=== PATIENT | female | born 1975 | race Caucasian/White ===

== ENCOUNTER 2022-04-03 13:40 | Emergency (ER) | payer OTHER ==
[2022-04-03 13:53] VITALS: BP 145/69; PULSE 99; RESP 20; TEMP 99
[2022-04-03] MEDS ORDERED: KETOROLAC 15 MG/ML 1 ML VIAL IM STA (14:24)
[2022-04-03] MEDS ORDERED: Acetaminophen-Codeine 300-30mg TAB PO STA (15:25)
--- NOTE | 2022-04-03 15:29 | ED ---
General Adult HPI - General Chief complaint: Abdominal Pain Stated complaint: Abd pain/Blood in urine Time Seen by Provider: 04/03/22 14:07 Source: patient, RN notes reviewed Mode of arrival: ambulatory Limitations: no limitations - History of Present Illness Initial comments: 46-year-old female presents to the emergency room for a chief complaint of lower abdominal pain and blood in urine. Patient reports this is an ongoing for 6 weeks now. Patient states the blood is minimal but she can see it when she wipes. Patient states she has been seen at [facility] emergency department 3 times. She had lab work and a CAT scan done. She was treated for possible urinary tract infection with antibiotic which didn't help. She then saw her primary care provider twice that changed the antibiotic but she is unsure which antibiotic it was. This did help with the pain somewhat. Patient states he doctor did a pelvic exam and she was tested for STDs which were negative. Patient states she is supposed to see a urologist but her insurance is still pending. She presented here today in hopes that we would be able to perform the testing a urologist would perform. Patient denies fevers. Patient has no other complaints at this time including shortness of breath, chest pain, nausea or vomiting, headache, or visual changes. - Related Data Previous Rx's Medication Instructions Recorded Nitrofurantoin Monohyd/M-Cryst 100 mg PO Q12HR #14 cap 04/03/22 [Macrobid] Allergies Allergy/AdvReac Type Severity Reaction Status Date / Time ciprofloxacin [From Cipro] Allergy Nausea & Verified 04/03/22 13:54 Vomiting Sulfa (Sulfonamide Allergy Rash/Hives Verified 04/03/22 13:54 Antibiotics) Review of Systems ROS Statement: Those systems with pertinent positive or pertinent negative responses have been documented in the HPI. ROS Other: All systems not noted in ROS Statement are negative. Past Medical History Past Medical History: No Reported History History of Any Multi-Drug Resistant Organisms: None Reported Past Surgical History: Appendectomy, Section, Cholecystectomy, Hysterectomy, Tubal Ligation Past Psychological History: Depression Smoking Status: Never smoker Past Alcohol Use History: None Reported Past Drug Use History: None Reported General Exam Limitations: no limitations General appearance: alert, in no apparent distress Head exam: Present: atraumatic Eye exam: Present: normal appearance, PERRL, EOMI. Absent: scleral icterus, conjunctival injection ENT exam: Present: normal exam, mucous membranes moist Neck exam: Present: normal inspection, full ROM. Absent: tenderness Respiratory exam: Present: normal lung sounds bilaterally. Absent: respiratory distress, wheezes Cardiovascular Exam: Present: regular rate, normal rhythm, normal heart sounds GI/Abdominal exam: Present: soft, tenderness (minimal suprapubic tendernesss without guarding or rebound), normal bowel sounds. Absent: distended, guarding, rebound Course Vital Signs 04/03/22 13:49 Temperature 99 F Pulse Rate 99 Respiratory 20 Rate Blood Pressure 145/69 O2 Sat by Pulse 97 Oximetry Medical Decision Making - Medical Decision Making Vitals are stable. Minimal suprapubic tenderness. exam is otherwise unremarkable. Patient is well-appearing. Patient has had outpatient workup 3. She had a negative ultrasound of her kidney and bladder, and negative CAT scan, and normal blood work within the past 6 weeks. We did attempt to get reports her [facility] however they are saying that their medical records office is closed today and they cannot give any. Patient was also treated for a urinary tract infection. She had a gynecologic exam as well, no STDs. At this plan I recommended repeat blood work which patient refused. She did not want an IV or blood draw. She did agree to urinalysis which did continue to show hematuria. There are also 16 white blood cells and small leukocyte esterase. We will try to treat with Macrobid pending culture. Ultimately patient needs to follow up with urology. I did contact registration who works with [employer] and will help expidite insurance. She was given outpatient follow up with urology. I did discuss that if she develops any worsening symptoms such as fevers or worsening abdominal pain she should return to the emergency room. I discussed this case with attending Dr. Villegas who agrees with this assessment and treatment plan. - Lab Data Lab Results 04/03/22 04/03/22 Range/Units 14:56 14:56 Urine Color Light Red Urine Appearance Cloudy H (Clear) Urine pH 5.5 (5.0-8.0) Ur Specific Cass 1.018 (1.001-1.035) Urine Protein 1+ H (Negative) Urine Glucose (UA) Negative (Negative) Urine Ketones Negative (Negative) Urine Blood Large H (Negative) Urine Nitrite Negative (Negative) Urine Bilirubin Negative (Negative) Urine Urobilinogen <2.0 (<2.0) mg/dL Ur Leukocyte Esterase Small H (Negative) Urine RBC >182 H (0-5) /hpf Urine WBC 16 H (0-5) /hpf Ur Squamous Epith Cells 1 (0-4) /hpf Urine Bacteria Rare H (None) /hpf Urine Mucus Few H (None) /hpf Urine HCG, Qual Not Detected (Not Detectd) Disposition Clinical Impression: Hematuria, Abdominal pain Disposition: HOME SELF-CARE Condition: Good Instructions (If sedation given, give patient instructions): Hematuria (ED) Additional Instructions: Take antibiotic as directed. Follow up with urology. Return to the emergency room for any worsening symptoms such as fevers or worsening pain. Prescriptions: Nitrofurantoin Monohyd/M-Cryst [Macrobid] 100 mg PO Q12HR #14 cap Is patient prescribed a controlled substance at d/c from ED?: No Referrals: VIVIEN ALVARENGA DO [Primary Care Provider] - 1-2 days Time of Disposition: 16:12
[2022-04-03 15:32] LABS: Appearance,Urine Cloudy (Clear); Bacteria,Urine Rare /hpf; Bilirubin,Urine Negative (Negative); Blood,Urine Large (Negative); Color,Urine Light Red; Glucose,Urine (UA) Negative (Negative); Ketones,Urine Negative (Negative); Leukocyte Esterase,Urine Small (Negative); Mucus,Urine Few /hpf; Nitrite,Urine Negative (Negative); PH, Urine 5.5 (5.0-8.0); Protein,Urine 1+ (Negative); RBC,Urine >182 /hpf (0-5); Specific Gravity,Urine 1.018 (1.001-1.035); Squamous Epithelial Cell,Urine 1 /hpf (0-4); Urobilinogen,Urine <2.0 mg/dL (<2.0); WBC,Urine 16 /hpf (0-5)
[2022-04-03] MEDS ORDERED: ACET/COD 300 MG/30 MG STARTER PACK 6 TAB BTL PO STA (16:13)
== END 2022-04-03 16:35 | disposition home or self-care (01) ==
LOC: EC 13:40
DX: R10.30 Lower abdominal pain, unspecified (principal); R31.9 Hematuria, unspecified; Z90.49 Acquired absence of other specified parts of digestive tract; Z88.1 Allergy status to other antibiotic agents; Z88.2 Allergy status to sulfonamides
CPT/HCPCS: 81001; 81025; 87086; 87491; 87591; 99284

== ENCOUNTER → 2022-08-30 | Day surgery (SDC) | payer OTHER ==
[~2022-08-30] MED LIST: LACTATED RINGERS 1,000 ML IV ONE; LACTATED RINGERS 1,000 ML IV SCH; LIDOCAINE 1% (10MG/ML) FOR IV START INTRADERMA PRN; LIDOCAINE 2% INJ 20 MG/ML (2 ML VIAL) ONE; PROPOFOL 10 MG/ML 20 ML VIAL IV ONE
--- NOTE | 2022-08-30 07:00 | P.GSHP ---
History of Present Illness H&P Date: 08/30/22 CHIEF COMPLAINT: GERD and colon screen HISTORY OF PRESENT ILLNESS: The patient is a 47-year-old female who presents with gastroesophageal reflux disease and need for colon screen. Upper and lower endoscopy were offered for further evaluation and management. PAST MEDICAL HISTORY: Please see list. PAST SURGICAL HISTORY: Please see list. MEDICATIONS: Please see list. ALLERGIES: Please see list. SOCIAL HISTORY: No illicit drug use FAMILY HISTORY: No reports of Crohn disease or ulcerative colitis. REVIEW OF ORGAN SYSTEMS: CONSTITUTIONAL: No reports of fevers or chills. GI: Denies any blood in stools or constipation. PHYSICAL EXAM: VITAL SIGNS: Stable GENERAL: Well-developed pleasant in no acute distress. HEENT: No scleral icterus. Extraocular movements grossly intact. Moist buccal mucosa. NECK: Supple without lymphadenopathy. CHEST: Unlabored respirations. Equal bilateral excursions. CARDIOVASCULAR: Regular rate and rhythm. Distal 2+ pulses. ABDOMEN: Soft, nondistended. MUSCULOSKELETAL: No clubbing, cyanosis, or edema. ASSESSMENT: 1. Gastroesophageal reflux disease 2. Colon screen. PLAN: 1. Recommend proceeding with an upper and lower endoscopy Past Medical History Past Medical History: No Reported History Additional Past Medical History / Comment(s): CURRENT: ABD PAIN History of Any Multi-Drug Resistant Organisms: None Reported Past Surgical History: Appendectomy, Section, Cholecystectomy, Hysterectomy, Tubal Ligation Past Anesthesia/Blood Transfusion Reactions: No Reported Reaction Past Psychological History: Depression Additional Psychological History / Comment(s): NO MEDS Smoking Status: Never smoker Past Alcohol Use History: None Reported Past Drug Use History: None Reported Medications and Allergies Home Medications Medication Instructions Recorded Confirmed Type Cyanocobalamin (Vitamin B-12) 1 tab PO DAILY 08/27/22 08/27/22 History [Vitamin B-12] Ibuprofen [Motrin Ib] 200 - 400 mg PO Q6H PRN 08/27/22 08/27/22 History Allergies Allergy/AdvReac Type Severity Reaction Status Date / Time ciprofloxacin [From Cipro] Allergy Nausea & Verified 08/27/22 08:20 Vomiting Sulfa (Sulfonamide Allergy Rash/Hives Verified 08/27/22 08:20 Antibiotics)
[2022-08-30 07:04] VITALS: RESP 16; TEMP 97.7
--- NOTE | 2022-08-30 07:40 | P.PCN ---
Date of Procedure: 08/30/22 Description of Procedure: PREOPERATIVE DIAGNOSIS: Gastroesophageal reflux disease. POSTOPERATIVE DIAGNOSIS: Gastroesophageal reflux disease. Gastric polyp Gastritis Diaphragmatic hiatal hernia OPERATION: Esophagogastroduodenoscopy with biopsies along antrum and duodenum SURGEON: Erin Summers MD ANESTHESIA: MAC. INDICATIONS: The patient is a 47-year-old female who presents with reflux disease. Benefits and risks of the procedure were described. Informed consent was obtained. DESCRIPTION: The patient was brought into the endoscopy suite and laid in the left lateral decubitus position. An Olympus gastroscope was passed along the posterior oropharynx down to the distal esophagus where the squamocolumnar junction was encountered at 40 cm from the incisors. The stomach was entered and bile reflux was found. Additional findings are listed below. Biopsies with cold forceps were obtained of the antrum. The first through third portion of the duodenum was examined. Retroflexion of the scope confirmed Hill grade 3 lower esophageal valve. The squamocolumnar junction demonstrated LA grade B erosive esophagitis. The stomach was desufflated. The patient tolerated the procedure well. FINDINGS: Squamocolumnar junction 40 cm from the incisors. Diaphragmatic hiatus at 41 cm. Hiatal hernia, 1 cm Hill grade 3 lower esophageal valve. LA grade B erosive esophagitis. Cold biopsies obtained of duodenum Chronic gastritis RECOMMENDATIONS: Upper endoscopy as needed.
--- NOTE | 2022-08-30 07:59 | P.PCN ---
Date of Procedure: 08/30/22 Description of Procedure: PREOPERATIVE DIAGNOSIS: Colonoscopy screening. POSTOPERATIVE DIAGNOSIS: Sigmoid stricture due to sigmoid diverticulosis Severe sigmoid diverticulosis OPERATION: Colonoscopy to the sigmoid colon. SURGEON: Erin Summers MD. ANESTHESIA: MAC. INDICATIONS: The patient is a 47-year-old female who presents for her first colonoscopy screening. Benefits and risks were described and informed consent was obtained. DESCRIPTION OF PROCEDURE: The patient had undergone Sutab prep. She had been brought into the operating room and laid in the left lateral decubitus position. After adequate intravenous sedation, the rectum was examined with 2% lidocaine jelly. No external hemorr hoids were encountered. The rectal tone was loose. No lesions were palpated in the rectal vault. An Olympus colonoscope was advanced along the rectum to a very tortuous sigmoid colon. The scope was then exchanged for a pediatric colonoscope. Despite multiple maneuvers, the sigmoid colon had severe tortuosity preventing further advancement of scope. The scope was passed to 30 cm from the anal verge. No evidence of polyps were identified. As the patient posed high risk for perforation with persistence of the procedure, the procedure was discontinued. The colon was desufflated. The patient had tolerated the procedure well. FINDINGS: Aronchik preparation quality scale 3 (1-5) Tortuous sigmoid colon with stricture preventing further advancement of the scope. No external prolapsed hemorrhoids. Internal hemorrhoids, grade 1 Scope advanced to sigmoid colon at 30 cm. No arteriovenous malformations. No adenomatous polyps. No focal colitis. RECOMMENDATIONS: Completion of colonoscopy evaluation with barium enema. Plan - Discharge Summary Discharge Rx Participant: No New Discharge Prescriptions: Continue Ibuprofen [Motrin Ib] 200 - 400 mg PO Q6H PRN PRN Reason: Pain Cyanocobalamin (Vitamin B-12) [Vitamin B-12] 1 tab PO DAILY Discharge Medication List Cyanocobalamin (Vitamin B-12) [Vitamin B-12] 1 tab PO DAILY 08/27/22 [History] Ibuprofen [Motrin Ib] 200 - 400 mg PO Q6H PRN 08/27/22 [History] Follow up Appointment(s)/Referral(s): Erin Summers MD [STAFF PHYSICIAN] - 09/14/22 Patient Instructions/Handouts: *Surgery [facility] - (Anesthesia) Endoscopy Discharge Instructions, Hiatal Hernia (DC), Diverticulosis (DC), Diverticulosis Diet (GEN), Colonoscopy (DC), Upper Endoscopy (DC), Barium Enema (DC) Activity/Diet/Wound Care/Special Instructions: Barium enema pending. Repeat colonoscopy 2 years, 2023 Discharge Disposition: HOME SELF-CARE
[2022-08-30 09:31] VITALS: BP 135/71; PULSE 79
--- NOTE | 2022-08-30 12:32 | FL ---
EXAMINATION TYPE: FL barium enema DATE OF EXAM: 08/30/2022 COMPARISON: NONE HISTORY: Incomplete colonoscopy. Stricture sigmoid colon. TECHNIQUE: A single contrast barium enema study is performed. A total of 5 minutes of fluoroscopic time was utilized during procedure and 38 images obtained. FINDINGS: Inside Sales Advisor view of the abdomen shows overall non-obstructive bowel gas pattern. No evidence of any mass or polyp, obstructing or constricting lesion throughout the colon. There is s ignificant colonic diverticulosis most pronounced in the sigmoid colon. Contrast flowed freely throug h the sigmoid colon into the remainder of the colon. There is somewhat limited evaluation of the dist al cecum secondary to contrast. Intraluminal gas is also present throughout the exam which limits lotus luation. IMPRESSION: Colonic diverticulosis without evidence for mass. Limited evaluation of the cecum and segments of the sigmoid colon due to overlapping bowel and intraluminal gas.
== END | disposition home or self-care (01) ==
LOC: ORWHC2ENDO 06:41
PROVIDERS: ATTEND Surgery Plastic and Reconstructive Surgery
DX: Z12.11 Encounter for screening for malignant neoplasm of colon (principal); K29.50 Unspecified chronic gastritis without bleeding; K21.00 Gastro-esophageal reflux disease with esophagitis, without bleeding; K57.30 Diverticulosis of large intestine without perforation or abscess without bleeding; K44.9 Diaphragmatic hernia without obstruction or gangrene; F32.A Depression, unspecified; Z98.891 History of uterine scar from previous surgery; Z98.51 Tubal ligation status; Z90.710 Acquired absence of both cervix and uterus; Z79.899 Other long term (current) drug therapy; Z79.1 Long term (current) use of non-steroidal anti-inflammatories (NSAID); Z88.2 Allergy status to sulfonamides; Z88.1 Allergy status to other antibiotic agents; Z90.49 Acquired absence of other specified parts of digestive tract
CPT/HCPCS: 88305; 88342; 74270; 43239; J2704; J2001; G0121